=== PATIENT | female | born 1940 | race Caucasian/White ===

== ENCOUNTER → 2017-06-08 | Outpatient (CLI) | payer MEDICARE, OTHER | END | disposition home or self-care (01) | LOC: RAD 13:07 | DX: L08.9 Local infection of the skin and subcutaneous tissue, unspecified (principal) | CPT/HCPCS: 73130; 73130-RT ==

== ENCOUNTER 2017-07-28 03:42 | Emergency (ER) | payer MEDICARE, OTHER | END 2017-07-28 05:12 | disposition home or self-care (01) | LOC: FTE 03:42 | DX: J40 Bronchitis, not specified as acute or chronic (principal) | CPT/HCPCS: 71045; 99283-25 ==